=== PATIENT | male | born 1995 | race Caucasian/White ===

== ENCOUNTER 2017-05-02 12:49 | Emergency (ER) | payer OTHER ==
[~2017-05-02] VITALS: Ht 167.6 cm; Wt 83.5 kg
[2017-05-02 12:55] VITALS: TEMP 36.4; Ht 167.6 cm; Wt 83.5 kg
[2017-05-02] MEDS ORDERED: ONDANSETRON INJ 2 MG/ML 2 ML VIAL IV STA (13:06)
[2017-05-02] MEDS ORDERED: KETOROLAC TROMETHAMINE 30 MG/ML VIAL IV STA (13:06)
[2017-05-02] MEDS ORDERED: SODIUM CHLORIDE 0.9% 1000ML 2,000 ML IV STA (13:06)
[2017-05-02 13:39] LABS: BASO % 0.3 %; BASO ABS # 0.02 K/uL (0-0.2); EOS % 2.2 %; EOS ABS # 0.14 K/uL (0-0.5); HEMATOCRIT 45.7 % (42-52); IG# 0.01 K/uL (0.00-0.02); LYMPH % 22.6 %; LYMPH ABS # 1.45 K/uL (1.2-3.4); MEAN CELL VOLUME 86.2 fL (80-100); MEAN CORPUSCULAR HEMOGLOBIN 30.2 pg (25-34); MEAN PLATELET VOLUME 9.6 fL (7.4-10.4); MONO % 7.3 %; MONO ABS # 0.47 K/uL (0.11-0.59); NEUT % 67.4 %; NEUT ABS # 4.33 K/uL (1.4-6.5); PLATELET COUNT 200 K/uL (130-400); RED CELL DISTRIBUTION WIDTH CV 12.9 % (11.5-14.5); RED CELL DISTRIBUTION WIDTH SD 40.7 fL (36.4-46.3); WHITE BLOOD COUNT 6.42 K/uL (4.8-10.8)
[2017-05-02] MEDS ORDERED: HYDR1SUP7 RE (13:39)
[2017-05-02] MEDS ORDERED: FAMOCHW27 PO (13:39)
[2017-05-02 13:57] LABS: ALBUMIN 4.3 gm/dl (3.4-5.0); CALCIUM 9.6 mg/dl (8.5-10.1); CREATININE 1.3 mg/dl (0.60-1.40); POTASSIUM 3.8 mmol/L (3.5-5.1)
[2017-05-02 14:00] LABS: TOTAL PROTEIN 7.8 gm/dl (6.4-8.2)
--- NOTE | 2017-05-02 14:12 | DIAGNOSTIC IMAGING REPORT ---
ABDOMEN 2VIEW W/PA CHEST RTN CLINICAL HISTORY: 21 years-old Male presenting with abd pain, lower abdominal pain and cramping, diarrhea, nausea, fever, symptoms for 2 days. TECHNIQUE: PA view of the chest and supine and upright views of the abdomen were obtained. COMPARISON: None. FINDINGS: Cardiomediastinal silhouette normal. Lungs and pleural spaces clear. Nonobstructive bowel gas pattern. No gross pneumoperitoneum. Allowing for bowel gas and stool, no calcifications to suggest nephrolithiasis. Pelvic phleboliths noted. Osseous structures normal. IMPRESSION: 1. No acute cardiopulmonary disease. 2. No radiographic evidence of acute intra-abdominal pathology. Electronically signed by: Cuong Rosado M.D. 05/02/2017 2:11 PM Dictated Date/Time: 05/02/2017 2:10 PM
[2017-05-02] MEDS ORDERED: OPTIRAY 320 IV PRN (15:00)
--- NOTE | 2017-05-02 15:45 | DIAGNOSTIC IMAGING REPORT ---
ABD/PELVIS IV CONTRAST ONLY CLINICAL HISTORY: 21 years-old Male presenting with lower abd pain, stomach pain, nausea and diarrhea. TECHNIQUE: Multidetector CT of the abdomen and pelvis was performed after the administration of intravenous contrast. IV contrast: 110 mL of Optiray 320. A dose lowering technique was used consistent with the principles of ALARA (as low as reasonably achievable). COMPARISON: None. CT DOSE (mGy.cm): The estimated cumulative dose is 345.97 mGy.cm. 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 Lung bases: Lungs and pleural spaces clear. Normal heart size. No pericardial or pleural effusion. Liver: Normal morphology. Heterogeneous enhancement pattern likely related to the phase of contrast. No focal lesion. Portal veins patent. Hepatic veins not yet opacified. Biliary: No intrahepatic or extrahepatic biliary ductal dilatation. Normal gallbladder. Pancreas: Normal. Spleen: Normal. Adrenal glands: Normal. Kidneys and ureters: Normal. No hydronephrosis. Bladder: Circumferential bladder wall thickening suggested allowing for underdistention. Pelvic organs: Prostate and seminal vesicles normal. Bowel: Normal appendix. No bowel obstruction. Mild apparent wall thickening of the gastric antrum, nonspecific. No perigastric inflammatory change. Peritoneal cavity: No free fluid or intraperitoneal gas. Lymph nodes: No enlarged lymph nodes in the abdomen or pelvis. Vasculature: Aorta and IVC patent and normal in caliber. Abdominal wall: Normal. Musculoskeletal: Normal. IMPRESSION: 1. Mild circumferential bladder wall thickening suggested, which could indicate cystitis. Correlate with urinalysis. Alternatively, this could be due to underdistention. 2. Mild apparent wall thickening of the gastric antrum, which could suggest gastritis. Electronically signed by: Cuong Rosado M.D. 05/02/2017 3:44 PM Dictated Date/Time: 05/02/2017 3:40 PM
[2017-05-02] MEDS ORDERED: ONDA4TAB65 PO (16:07)
[2017-05-02 16:08] VITALS: BP 139/87; PULSE 66; O2SAT 98
--- NOTE | 2017-05-02 18:12 | EMERGENCY ROOM VISIT NOTE ---
History Report prepared by Kelsey: Marie Mendez Under the Supervision of: Dr. Vinicio Ozuna D.O. First contact with patient: 12:59 Chief Complaint: ILLNESS Stated Complaint: ABD PAIN, DIARRHEA, FEVER, NAUSEA X 32 HOURS History of Present Illness The patient is a 21 year old male who presents to the Emergency Room with complaints of constant generalized illness beginning about 24 hours ago. The patient states his symptoms started with diarrhea. The patient notes intermittent abdominal pain and nausea. The patient states he has had "white egg like" spots in his stool. He currently has no abdominal pain as it is a 0/ 10. The patient denies any recent trips or travel. He denies drinking any well water or stream water. Pt denies headache, change in vision, fevers, chest pain , shortness of breath, vomiting, pain with urination, and melena. Source of History: patient Onset: 24 hours ago Position: other (generalized) Quality: other (illness) Timing: constant Associated Symptoms: + nausea, + abdominal pain, + diarrhea, No chest pain, No SOB, No urinary symptoms Review of Systems See HPI for pertinent positives & negatives. A total of 10 systems reviewed and were otherwise negative. Past Medical & Surgical Medical Problems: (1) No Known Active Medical Problems Family History Patient reports no known family medical history. Social History Smoking Status: Never Smoker Housing Status: lives with family Occupation Status: student Current/Historical Medications Scheduled Famotidine-Calcium Carbonate-M (Pepcid Complete), 1 TAB PO DAILY Hydrocortisone Acetate (Rectal (Hemmorex-Hc), 1 SUPP RE DAILY Scheduled PRN Ondansetron Hcl (Zofran), 1 TAB PO Q6H PRN for Nausea Allergies Coded Allergies: Penicillins (Unverified Adverse Reaction, Intermediate, RASH, 05/02/17) Physical Exam Vital Signs Date Time Temp Pulse Resp B/P (MAP) Pulse Ox O2 Delivery O2 Flow Rate FiO2 05/02/17 16:08 66 18 139/87 98 Room Air 05/02/17 14:38 69 16 139/86 99 Room Air 05/02/17 12:55 36.4 77 18 160/95 100 Room Air Physical Exam GENERAL: Sitting up in bed, alert, well appearing, well nourished, no distress, non-toxic EYE EXAM: normal conjunctiva. OROPHARYNX: no exudate, no erythema, lips, buccal mucosa, and tongue normal and mucous membranes are dry NECK: supple, no nuchal rigidity, no adenopathy, non-tender LUNGS: Clear to auscultation. Normal chest wall mechanics HEART: no murmurs, S1 normal and S2 normal ABDOMEN: abdomen soft, non-tender, normo-active bowel sounds, no masses, no rebound or guarding. BACK: Back is symmetrical on inspection and there is no deformity, no midline tenderness, no CVA tenderness. SKIN: no rashes and no bruising UPPER EXTREMITIES: upper extremities are grossly normal. LOWER EXTREMITIES: No pitting edema. NEURO EXAM: Normal sensorium, cranial nerves II-XII grossly intact, normal speech, no gross weakness of arms, no gross weakness of legs. 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 Lung bases: Lungs and pleural spaces clear. Normal heart size. No pericardial or pleural effusion. Liver: Normal morphology. Heterogeneous enhancement pattern likely related to the phase of contrast. No focal lesion. Portal veins patent. Hepatic veins not yet opacified. Biliary: No intrahepatic or extrahepatic biliary ductal dilatation. Normal gallbladder. Pancreas: Normal. Spleen: Normal. Adrenal glands: Normal. Kidneys and ureters: Normal. No hydronephrosis. Bladder: Circumferential bladder wall thickening suggested allowing for underdistention. Pelvic organs: Prostate and seminal vesicles normal. Bowel: Normal appendix. No bowel obstruction. Mild apparent wall thickening of the gastric antrum, nonspecific. No perigastric inflammatory change. Peritoneal cavity: No free fluid or intraperitoneal gas. Lymph nodes: No enlarged lymph nodes in the abdomen or pelvis. Vasculature: Aorta and IVC patent and normal in caliber. Abdominal wall: Normal. Musculoskeletal: Normal. IMPRESSION: 1. Mild circumferential bladder wall thickening suggested, which could indicate cystitis. Correlate with urinalysis. Alternatively, this could be due to underdistention. 2. Mild apparent wall thickening of the gastric antrum, which could suggest gastritis. Electronically signed by: Cuong Rosado M.D. ABDOMEN 2VIEW W/PA CHEST RTN FINDINGS: Cardiomediastinal silhouette normal. Lungs and pleural spaces clear. Nonobstructive bowel gas pattern. No gross pneumoperitoneum. Allowing for bowel gas and stool, no calcifications to suggest nephrolithiasis. Pelvic phleboliths noted. Osseous structures normal. IMPRESSION: 1. No acute cardiopulmonary disease. 2. No radiographic evidence of acute intra-abdominal pathology. Electronically signed by: Cuong Rosado M.D. Laboratory Results 05/02/17 13:29 Red Blood Count 5.30, Mean Corpuscular Volume 86.2, Mean Corpuscular Hemoglobin 30.2, Mean Corpuscular Hemoglobin Concent 35.0, Mean Platelet Volume 9.6, Neutrophils (%) (Auto) 67.4, Lymphocytes (%) (Auto) 22.6, Monocytes (%) (Auto) 7.3, Eosinophils (%) (Auto) 2.2, Basophils (%) (Auto) 0.3, Neutrophils # (Auto) 4.33, Lymphocytes # (Auto) 1.45, Monocytes # (Auto) 0.47, Eosinophils # (Auto) 0.14, Basophils # (Auto) 0.02 05/02/17 13:29 Test 05/02/17 13:29 05/02/17 13:45 White Blood Count 6.42 K/uL (4.8-10.8) Red Blood Count 5.30 M/uL (4.7-6.1) Hemoglobin 16.0 g/dL (14.0-18.0) Hematocrit 45.7 % (42-52) Mean Corpuscular Volume 86.2 fL (80-100) Mean Corpuscular Hemoglobin 30.2 pg (25-34) Mean Corpuscular Hemoglobin Concent 35.0 g/dl (32-36) Platelet Count 200 K/uL (130-400) Mean Platelet Volume 9.6 fL (7.4-10.4) Neutrophils (%) (Auto) 67.4 % Lymphocytes (%) (Auto) 22.6 % Monocytes (%) (Auto) 7.3 % Eosinophils (%) (Auto) 2.2 % Basophils (%) (Auto) 0.3 % Neutrophils # (Auto) 4.33 K/uL (1.4-6.5) Lymphocytes # (Auto) 1.45 K/uL (1.2-3.4) Monocytes # (Auto) 0.47 K/uL (0.11-0.59) Eosinophils # (Auto) 0.14 K/uL (0-0.5) Basophils # (Auto) 0.02 K/uL (0-0.2) RDW Standard Deviation 40.7 fL (36.4-46.3) RDW Coefficient of Variation 12.9 % (11.5-14.5) Immature Granulocyte % (Auto) 0.2 % Immature Granulocyte # (Auto) 0.01 K/uL (0.00-0.02) Anion Gap 8.0 mmol/L (3-11) Est Creatinine Clear Calc Drug Dose 91.1 ml/min Estimated GFR () 90.4 Estimated GFR (Non- 78.0 BUN/Creatinine Ratio 12.2 (10-20) Calcium Level 9.6 mg/dl (8.5-10.1) Total Bilirubin 2.1 mg/dl (0.2-1) Direct Bilirubin 0.4 mg/dl (0-0.2) Aspartate Amino Transf (AST/SGOT) 18 U/L (15-37) Alanine Aminotransferase (ALT/SGPT) 32 U/L (12-78) Alkaline Phosphatase 67 U/L (45-117) Total Protein 7.8 gm/dl (6.4-8.2) Albumin 4.3 gm/dl (3.4-5.0) Lipase 118 U/L (73-393) Urine Color YELLOW Urine Appearance CLEAR (CLEAR) Urine pH 6.5 (4.5-7.5) Urine Specific [place] 1.010 (1.000-1.030) Urine Protein NEG (NEG) Urine Glucose (UA) NEG (NEG) Urine Ketones NEG (NEG) Urine Occult Blood NEG (NEG) Urine Nitrite NEG (NEG) Urine Bilirubin NEG (NEG) Urine Urobilinogen NEG (NEG) Urine Leukocyte Esterase NEG (NEG) Urine WBC (Auto) 0 /hpf (0-5) Urine RBC (Auto) 0-4 /hpf (0-4) Urine Hyaline Casts (Auto) 0 /lpf (0-5) Urine Epithelial Cells (Auto) 0-5 /lpf (0-5) Urine Bacteria (Auto) NEG (NEG) Laboratory results per my review. Medications Administered Medications (Trade) Dose Ordered Sig/Blu Route Start Time Stop Time Status Last Admin Dose Admin Sodium Chloride 2,000 ml @ 999 mls/hr Q2H1M STAT IV 05/02/17 13:06 05/02/17 15:06 DC 05/02/17 13:29 999 MLS/HR Ondansetron HCl (Zofran Inj) 4 mg NOW STAT IV 05/02/17 13:06 05/02/17 13:08 DC 05/02/17 13:30 4 MG Ketorolac Tromethamine (Toradol Inj) 30 mg NOW STAT IV 05/02/17 13:06 05/02/17 13:08 DC 05/02/17 13:30 30 MG ED Course ED COURSE: Vital signs were reviewed and showed normal The patients medical record was reviewed The above diagnostic studies were performed and reviewed. ED treatments and interventions as stated above. 1300: The patient was evaluated in room C4. A complete history and physical examination was performed. 1306: Ordered Toradol Inj 30 mg IV, Zofran Inj 4 mg IV, Sodium Chloride 2000 ml @ 999 mls/hr IV. 1455: I updated the patient on his test results. 1554: I updated the patient on his test results. He would like to go home. 1613: Upon reevaluation, the patient is resting comfortably.I discussed my findings with the patient and he understands and agrees with the treatment plan. Based on the patients age, coexisting illnesses, exam and lab findings the decision to treat as an outpatient was made. The patient remained stable while under my care. The patient appeared well at the time of discharge. Medical Decision Differential diagnoses includes but is not limited to gastritis, peptic ulcer disease, GERD, gallbladder disease, pancreatitis, small bowel obstruction, acute coronary syndrome, pericarditis, ischemic bowel, irritable bowel disease, irritable bowel syndrome, appendicitis, diverticulitis, malignancy, hernia, urinary tract infection, torsion, perforation, trauma, infectious. Pt is a 21 y/o who presents the ER with nausea vomiting diarrhea associated with lower abdominal cramping pain. Patient has not been on antibiotics or recent trips or travel. He noted white spots in his diarrhea. He was concerned about possible parasites. Did bring a stool sample. No parasites/ warm seen. CBC along with BMP and LFTs was unremarkable. Lipase normal. T bili slightly elevated at 2.1. UA negative. CT abdomen pelvis along with abdominal obstruction series was unremarkable. Patient was given fluids and Zofran. He felt significant better. He was discharged follow-up with PCP as an outpatient as I favor this likely gastroenteritis. Discussed with Pt concerning signs and symptoms to watch out for. Pt was instructed to follow up with their PCP and discussed with the patient their option to return to the ED at anytime for persistent or worsening symptoms. The appropriate anticipatory guidance and out-patient management, including indications for return to the emergency department, were explained at length to the patient and understood. Medication Reconcilliation Current Medication List: was personally reviewed by me Blood Pressure Screening Patient's blood pressure: Elevated blood pressure Blood pressure disposition: Elevated BP felt to be situational Impression Primary Impression: Gastroenteritis Additional Impression: Nausea and vomiting Scribe Attestation The scribe's documentation has been prepared under my direction and personally reviewed by me in its entirety. I confirm that the note above accurately reflects all work, treatment, procedures, and medical decision making performed by me. Departure Information Dispostion Home / Self-Care Prescriptions Ondansetron Hcl (ZOFRAN) 4 Mg Tab 1 TAB PO Q6H Y for Nausea, #10 TAB 1 Refill Prov: Vinicio Ozuna, DO 05/02/17 Forms HOME CARE DOCUMENTATION FORM, IMPORTANT VISIT INFORMATION, WORK / SCHOOL INSTRUCTIONS Patient Instructions Abdominal Pain - [facility] Additional Instructions Please follow up with your primary care doctor with in the next 24 hours. Any worsening of your symptoms, please return to the ED immediately. This includes any fevers greater than 100.4, worsening pain, chest pain, shortness breath, persistent nausea, vomiting, unable to eat or drink, or any other concerning signs or symptoms from your standpoint. Please take Zofran as needed for nausea vomiting. If he continued to have loose stools over the next 72 hours he may need stool cultures and please follow-up with your primary care doctor. Problem Qualifiers Additional Impression: Nausea and vomiting Vomiting type: unspecified Vomiting Intractability: unspecified Qualified Codes: R11.2 - Nausea with vomiting, unspecified
== END 2017-05-02 16:11 | disposition home or self-care (01) ==
LOC: C.EDB 12:52 → C.EDC 16:11
DX: K52.9 Noninfective gastroenteritis and colitis, unspecified (principal); R03.0 Elevated blood-pressure reading, without diagnosis of hypertension; R17 Unspecified jaundice; Z88.0 Allergy status to penicillin